=== PATIENT | female | born 1985 | race Caucasian/White ===

== ENCOUNTER 2016-12-17 16:31 | Emergency (ER) | payer OTHER ==
[~2016-12-17] VITALS: Ht 170.2 cm; Wt 73.8 kg
[~2016-12-17 16:31] MED LIST: AVENTYL,PAMELOR50 MG PO; B-50 COMPLEX1 EACH PO; DICLEGIS DR 101 EACH PO; ELAVIL50 MG PO; KLONOPIN0.5 M1 PO; LEXAPRO; LO-DOSE ASPIRIN81 M1 PO; METFORMIN HCL500 MG; MOTRIN800 MG PO; NOHOMEMEDS; NORTRIPTYLINE H50 MG PO; PERCOCET 5/31 TABLET PO; PRENATAL VITAM1 EAC3 PO; PROTONIX40 MG PO; SERTRALINE HCL50 MG; TOPAMAX100 MG PO; TOPAMAX50 MG PO; VITAMIN B-6100 MG PO; ZANTAC300 MG PO; ZOLOFT25 MG PO
[2016-12-17] MEDS ORDERED: PERCOCET 5/31 TABLET PO (18:28)
[2016-12-17] MEDS ORDERED: FLEXERIL10 MG PO (18:28)
[2016-12-17 18:46] VITALS: BP 122/78
== END 2016-12-17 18:47 | disposition home or self-care (01) ==
LOC: EME 16:31
DX: S83.92XA Sprain of unspecified site of left knee, initial encounter (principal); S80.02XA Contusion of left knee, initial encounter; S30.0XXA Contusion of lower back and pelvis, initial encounter; W10.9XXA Fall (on) (from) unspecified stairs and steps, initial encounter
CPT/HCPCS: 72220; 73564; 99281; 99283

== ENCOUNTER 2017-03-18 13:06 | Emergency (ER) | payer OTHER ==
[~2017-03-18] VITALS: Ht 170.2 cm; Wt 77.1 kg
[~2017-03-18 13:06] MED LIST changes: +FLEXERIL10 MG PO
[2017-03-18 13:56] LABS: HEMATOCRIT 36.1 % (36.0-46.0); MCH 27.6 PG (29.0-34.0); MCHC 31.3 G/DL (30.0-36.0); MCV 88.3 FL (83-99); MEAN PLAT.VOLUME 10.4 uM^3 (9.5-12.4); PLATELET COUNT 258 K/uL (156-360); RBC DIS.WIDTH-CV 14.5 % (11.8-14.6); RBC DIS.WIDTH-SD 45.8 % (39-53); RED BLOOD COUNT 4.09 M/uL (3.80-5.20); WHITE BLOOD COUNT 8.1 K/uL (4.1-10.2)
[2017-03-18 14:14] LABS: CHLORIDE 110 mEq/L (99-109); POTASSIUM 3.7 mEq/L (3.7-5.4); SODIUM 140 mEq/L (136-147)
[2017-03-18 14:16] LABS: GLUCOSE 98 mg/dL (70-99)
[2017-03-18 14:18] LABS: ANION GAP 10 MEQ/L (2-14); TOTAL BILIRUBIN 0.3 mg/dL (0.0-1.0)
[2017-03-18 14:20] LABS: ALKALINE PHOSPHATASE 94 IU/L (3-129); GFR ESTIMATE (CALCULATED) > 59 mL/min/
[2017-03-18 14:21] LABS: UREA NITROGEN (BUN) 10 mg/dL (9-23)
[2017-03-18 14:29] LABS: ADD MIUA? NO; BILIRUBIN NEGATIVE; BLOOD NEGATIVE; COLOR STRAW ((YELLOW)); GLUCOSE (STRIP) NEGATIVE; KETONES NEGATIVE; LEUKOCYTES NEGATIVE; NITRITE NEGATIVE; PROTEIN (STRIP) NEGATIVE; SPECIFIC GRAVITY 1.006 (1.000-1.030); UCUL ADDED? NO; UROBILINOGEN 0.2 MG/DL (0.2-1.0)
[2017-03-18 14:39] LABS: QUANTITATIVE HCG < 4.0 MIU/ML
[2017-03-18 14:44] LABS: LIPASE 50 U/L (1.0-51.0)
[2017-03-18 17:11] VITALS: BP 112/72
== END 2017-03-18 17:12 | disposition home or self-care (01) ==
LOC: EME 13:06
DX: R55 Syncope and collapse (principal); R10.9 Unspecified abdominal pain; M25.561 Pain in right knee; W19.XXXA Unspecified fall, initial encounter; Z87.442 Personal history of urinary calculi
CPT/HCPCS: 73564; 74176; 80053; 81003; 83690; 84702; 85027; 93005; 99281; 99284; J1885

== ENCOUNTER 2017-12-28 16:25 | Emergency (ER) | payer OTHER ==
[~2017-12-28] VITALS: Ht 170.2 cm; Wt 81.8 kg
[2017-12-28] MEDS ORDERED: PERCOCET 5/31 TABLET PO (18:46)
[2017-12-28 20:07] VITALS: BP 129/90
== END 2017-12-28 20:08 | disposition home or self-care (01) ==
LOC: EME 16:25
PROC: 2W3RX1Z Immobilization of Left Lower Leg using Splint (ICD-10-PCS; principal; 2017-12-28)
DX: S60.212A Contusion of left wrist, initial encounter (principal); S80.02XA Contusion of left knee, initial encounter; S90.02XA Contusion of left ankle, initial encounter; W10.9XXA Fall (on) (from) unspecified stairs and steps, initial encounter; Y93.01 Activity, walking, marching and hiking; M21.541 Acquired clubfoot, right foot; M21.542 Acquired clubfoot, left foot; F41.9 Anxiety disorder, unspecified; Z87.19 Personal history of other diseases of the digestive system; Z90.49 Acquired absence of other specified parts of digestive tract; Z88.5 Allergy status to narcotic agent; Z88.8 Allergy status to other drugs, medicaments and biological substances
CPT/HCPCS: 73090; 73130; 73564; 73610; 99281; 99284; J1885; J2060; J2270

== ENCOUNTER 2017-12-31 19:58 | Emergency (ER) | payer OTHER ==
[~2017-12-31] VITALS: Ht 170.2 cm; Wt 81.8 kg
[2017-12-31 21:32] LABS: HEMATOCRIT 36.6 % (36.0-46.0); HEMOGLOBIN 11.4 G/DL (11.9-15.5); MCH 25.3 PG (29.0-34.0); MCHC 31.1 G/DL (30.0-36.0); MCV 81.2 FL (83-99); PLATELET COUNT 388 K/uL (156-360); RBC DIS.WIDTH-CV 16.5 % (11.8-14.6); RBC DIS.WIDTH-SD 48.4 % (39-53); RED BLOOD COUNT 4.51 M/uL (3.80-5.20); WHITE BLOOD COUNT 10.3 K/uL (4.1-10.2)
[2017-12-31 21:41] LABS: ALBUMIN 4.3 g/dL (3.2-4.8); CHLORIDE 105 mEq/L (99-109); POTASSIUM 3.9 mEq/L (3.7-5.4); SODIUM 138 mEq/L (136-147)
[2017-12-31 21:43] LABS: GLUCOSE 105 mg/dL (70-99); TOTAL PROTEIN 7.9 g/dL (6.4-8.3)
[2017-12-31 21:45] LABS: TOTAL BILIRUBIN 0.3 mg/dL (0.0-1.0)
[2017-12-31 21:47] LABS: ALKALINE PHOSPHATASE 105 IU/L (3-129); CREATININE 0.7 mg/dL (0.6-1.3); GFR ESTIMATE (CALCULATED) > 59 mL/min/
[2017-12-31 21:48] LABS: UREA NITROGEN (BUN) 9 mg/dL (9-23)
[2017-12-31 21:49] LABS: AST (GOT) 23 IU/L (2-34); DIRECT BILIRUBIN 0.1 mg/dL (0.0-0.3)
[2017-12-31 21:50] LABS: ALT (GPT) 25 IU/L (3-49)
[2018-01-01] MEDS ORDERED: PERCOCET 5/31 TABLET PO (01:31)
[2018-01-01 01:45] VITALS: BP 120/82
== END 2018-01-01 01:14 | disposition home or self-care (01) ==
LOC: EME 19:58
PROVIDERS: Physician Assistant Medical
DX: R50.9 Fever, unspecified (principal); S93.402D Sprain of unspecified ligament of left ankle, subsequent encounter; S83.92XD Sprain of unspecified site of left knee, subsequent encounter; W10.9XXD Fall (on) (from) unspecified stairs and steps, subsequent encounter; F41.9 Anxiety disorder, unspecified; Z90.49 Acquired absence of other specified parts of digestive tract
CPT/HCPCS: 80048; 80076; 83605; 85027; 87040; 93926; 93971; 99281; 99284